=== PATIENT | female | born 1945 | race Caucasian/White ===

== ENCOUNTER → 2022-06-23 | Outpatient (CLI) | payer MEDICARE ==
[~2022-06-23] MED LIST: ASPIRIN E.C. 8181 MG PO; CALCIUM CITRAT200 M2 PO; DOXYCYCLINE 10100 MG PO; FIBERCON PO; FISH OIL 1000MG1 CAP PO; FOSAMAX 70MG TA70 MG PO; GLUCOSAMINE & C1 TAB PO; HCTZ 25MG TAB25 MG PO; KLOR-CON 1010 MEQ PO; LIPITOR 40MG TA40 MG PO; MAGNESIUM200 MG PO; MASON NATURAL2000 IU PO; NORVASC 5MG5 MG/TAB PO; OCUVITE1 TA1 PO; PROTONIX 40MG T40 MG PO; TOPROL XL 25MG25 MG PO; VASOTEC 10M10 MG/TAB PO; VITAMIN B COMPL1 SGL PO
== END ==
LOC: COL.PUL 08:00
DX: C34.31 Malignant neoplasm of lower lobe, right bronchus or lung (principal)

== ENCOUNTER → 2022-08-02 | Outpatient (CLI) | payer MEDICARE | LOC: COL.RAD 10:28 | DX: E04.1 Nontoxic single thyroid nodule (principal) ==

== ENCOUNTER → 2023-03-30 | Outpatient (CLI) | payer MEDICARE | LOC: COL.RAD 10:00 | DX: C34.90 Malignant neoplasm of unspecified part of unspecified bronchus or lung (principal); J90 Pleural effusion, not elsewhere classified; Z90.2 Acquired absence of lung [part of] ==